=== PATIENT | female | born 1965 | race Caucasian/White ===

== ENCOUNTER 2017-07-06 17:55 | Emergency (ER) | payer OTHER ==
[2017-07-06 18:00] VITALS: BP 130/80
--- NOTE | 2017-07-06 18:29 | UC ---
Abdominal Pain Female HPI - HPI Summary HPI Summary: Patient present with complaints of one month onset constipation. She states she is passing stool, thin formed with small round firm stool. Her last BM was Monday. She complaints of minor abdominal discomfort, and at times feels slight pressure the rises up the abdomen to the base of her neck. She also states that she at times feels full, and bloated. She states she has increased water, has been exercising and took Miralax x five days without and improvements. - History of Current Complaint Chief Complaint: UCGI Stated Complaint: ABDOMINAL COMPLAINT Time Seen by Provider: 07/06/17 17:59 Hx Obtained From: Patient ?: No Onset/Duration: Gradual Onset, Lasting Days Timing: Constant Severity Initially: Mild Severity Currently: Moderate Location: Diffuse Character: Cramping Aggravating Factor(s): Nothing Alleviating Factor(s): Nothing Associated Signs and Symptoms: Positive: Negative - Risk Factors Ectopic Risk Factor: Negative Ovarian Torsion Risk Factor: Negative Allergies/Adverse Reactions: Allergies Allergy/AdvReac Type Severity Reaction Status Date / Time No Known Allergies Allergy Verified 07/06/17 18:00 Home Medications: Home Medications NK [No Home Medications Reported] 07/06/17 [History Confirmed 07/06/17] PMH/Surg Hx/FS Hx/Imm Hx Previously Healthy: Yes - Surgical History Surgical History: None - Family History Known Family History: Positive: None - Social History Occupation: Employed Full-time Alcohol Use: Occasionally Substance Use Type: None Smoking Status (MU): Never Smoked Tobacco Review of Systems Constitutional: Negative Skin: Negative Eyes: Negative ENT: Negative Respiratory: Negative Cardiovascular: Negative Gastrointestinal: Negative Genitourinary: Negative Motor: Negative Neurovascular: Negative Musculoskeletal: Negative Neurological: Negative Psychological: Negative All Other Systems Reviewed And Are Negative: Yes Physical Exam Triage Information Reviewed: Yes Appearance: Well-Appearing Vital Signs: Initial Vital Signs Temp 97.9 F 07/06/17 17:57 Pulse 75 07/06/17 17:57 Resp 16 07/06/17 17:57 BP 130/80 07/06/17 17:57 Pulse Ox 100 07/06/17 17:57 Vital Signs Reviewed: Yes Eye Exam: Normal ENT Exam: Normal Dental Exam: Normal Neck exam: Normal Neck: Positive: 1 Respiratory Exam: Normal Cardiovascular Exam: Normal Abdominal Exam: Normal Musculoskeletal Exam: Normal Neurological Exam: Normal Psychological Exam: Normal Skin Exam: Normal Abd Pain Female Course/Dx - Course Course Of Treatment: Patient presents with new onset constipation, last BM was Monday. Abdo xray was obtained and read by the radiologist as negative. The results were reviewed with the patient, and she was given a copy of the report. Patient declined rectal exam. She has a referral to GI, and is going to schedule her 50 year screening exam. The abdominal examination was benign. I did recommend that she try OTC Dulcolax, then if no results Magnesium Citrate, and then Fleets enema. She verablized understanding of the discharge instrustions. - Differential Dx/Diagnosis Differential Diagnosis: Constipation Provider Diagnoses: constipation. abdominal pain Discharge - Discharge Plan Condition: Stable Disposition: HOME Patient Education Materials: Constipation (ED), Abdominal Pain (ED), Gas and Bloating (ED) Referrals: She Espinal MD [Primary Care Provider] - Additional Instructions: You need to schedule your colonoscopy as soon as possible. Patient declined rectal exam to evaluate for stool in the rectal vault. For constipation in we recommend dulcolax stool softener, then magesium citrate , and fleets enema.
--- NOTE | 2017-07-06 18:36 | RAD ---
INDICATION: Abdominal pain COMPARISON: None TECHNIQUE: Erect and supine views of the abdomen are submitted. FINDINGS: Bones: There are no acute bony findings. Soft tissues: The soft tissues appear normal. The psoas margins are sharp. Bowel gas pattern: Normal Calcifications: There are no abnormal calcifications. Other: None IMPRESSION: NO ACUTE DIAGNOSTIC FINDINGS.
== END 2017-07-06 18:40 | disposition home or self-care (01) ==
LOC: UCEAST 17:55
DX: K59.00 Constipation, unspecified (principal); R10.84 Generalized abdominal pain
CPT/HCPCS: 74020; 99211; G0463